=== PATIENT | female | born 1950 | race Caucasian/White ===

== ENCOUNTER 2017-09-17 23:25 | Emergency (ER) | payer OTHER, BC ==
[2017-09-17 23:30] VITALS: BP 187/76
--- NOTE | 2017-09-18 00:52 | EDPHY ---
H & P Stated Complaint: fall down 6 stairs, denies LOC, R wrist pain Time Seen by Provider: 09/18/17 00:13 HPI/ROS: HPI: The patient presents with a fall down 6 stairs which happened just prior to arrival. She tripped and fell down the stairs landing on an outstretched arm and then landed on her face. She is complaining of right wrist pain which has been constant and associated with swelling of her wrist. She also has pain overlying her sternum which is sharp and constant. She does not have any shortness of breath. She has some swelling of her nose. REVIEW OF SYSTEMS Constitutional: No fever, no chills. Eyes: No discharge. ENT: No sore throat. Cardiovascular: No chest pain, no palpitations. Respiratory: No cough, no shortness of breath. Gastrointestinal: No abdominal pain, no vomiting. Genitourinary: No hematuria. Musculoskeletal: No back pain. Skin: No rashes. Neurological: No headache. PMHx: Hypertension TRAUMA PHYSICAL General Appearance: Alert, no distress Head: Nasal bridge abrasions, no septal hematoma, nose is diffusely edematous Eyes: Pupils equal, round, reactive ENT, Mouth: No hemotypanium, no oral trauma Neck: Non- tender, trachea midline Respiratory: Positive sternal tenderness at the lower sternal region in the midline, no subcutaneous air, lungs clear bilaterallty Cardiovascular: Regular rate and rhythm Abdomen: Abdomen is soft and non-tender, pelvis stable Skin: No lacerations, No abrasion Back: No midline T/L/S pain Extremities: Right wrist with obvious deformity, sensation intact to light touch in her hand, 2+ radial pulses, brisk cap refill Neurological: A&Ox3, GCS=15,normal motor function with 5/5 strength in all 4 extremities, normal sensory exam Source: Patient Exam Limitations: No limitations - Personal History Current Tetanus/Diphtheria Vaccine: Unsure - Medical/Surgical History Hx Asthma: No Hx Chronic Respiratory Disease: No Hx Diabetes: No Hx Cardiac Disease: No Hx Renal Disease: No Hx Cirrhosis: No Hx Alcoholism: No Hx HIV/AIDS: No Hx Splenectomy or Spleen Trauma: No Other PMH: HTN, - Social History Smoking Status: Former smoker Constitutional: Initial Vital Signs Temperature (C) 36.3 C 09/17/17 23:26 Heart Rate 60 09/17/17 23:26 Respiratory Rate 18 09/17/17 23:26 Blood Pressure 187/76 H 09/17/17 23:26 O2 Sat (%) 93 09/17/17 23:26 O2 Delivery Mode Room Air Allergies/Adverse Reactions: Penicillins Allergy (Verified 09/17/17 23:28) Sulfa (Sulfonamide Antibiotics) Allergy (Verified 09/17/17 23:28) Home Medications: Medication Instructions Recorded Atenolol 09/17/17 HCTZ (*) 09/17/17 Medical Decision Making - Diagnostics Imaging Results: CT head demonstrates nasal bone fracture, discussed with the radiologist control tower radio operator. Chest x-ray two views is unremarkable. Right wrist x-rays demonstrate nondisplaced radial fracture. Procedures: SPLINT Procedure: Splint placement. A ortho glass sugar-tong splint was applied to the right wrist by gianluca. After application of the splint I returned and re-examined the patient. The splint was adequately immobilizing the joint and distal to the splint the patient's circulation and sensation was intact. Differential Diagnosis: This is a 67-year-old female with hypertension who had a mechanical fall down 6 steps earlier tonight. She has sustained injury to her nose, right wrist, and is complaining of chest pain with tenderness of her lower sternal region. Vital signs demonstrate hypertension, otherwise unremarkable. X-rays performed demonstrate nasal bone fracture with no intracranial hemorrhage , right wrist fracture which is nondisplaced which will not require reduction though we will splint here. As I discussed with her treatment for her nasal bone fracture. [place] She will arrange follow-up when she returns home. We have discussed treatment of her wrist fracture with rest, ice, elevation. She will be discharged with her family. Departure - Departure Disposition: Home, Routine, Self-Care Clinical Impression: Fall down stairs, Distal radius fracture, right, Nasal bone fracture Condition: Good Instructions: Splint Care (ED) Additional Instructions: I recommend you take acetaminophen 650 mg every 6 hr as needed for pain. Please use ice to help with pain as well. You should keep the splint on for 7- 10 days until your able to be evaluated by an orthopedic surgeon at home. You can use the sling as needed for comfort. Please use plenty of ice on her nose. If you notice over the next week that is difficult to breathe through your nose, you should make a follow-up appointment with the senior analysis specialist. Return to the emergency department if your worse in any way. Referrals: NONE *PRIMARY CARE P,. [Primary Care Provider] - As per Instructions
== END 2017-09-18 01:26 | disposition home or self-care (01) ==
DX: S52.501A Unspecified fracture of the lower end of right radius, initial encounter for closed fracture (principal); S02.2XXA Fracture of nasal bones, initial encounter for closed fracture; I10 Essential (primary) hypertension; Z87.891 Personal history of nicotine dependence; W10.8XXA Fall (on) (from) other stairs and steps, initial encounter; Y99.8 Other external cause status
CPT/HCPCS: 70450; 71046; 73110; 99284; A4565